=== PATIENT | male | born 1965 | race Caucasian/White ===

== ENCOUNTER 2017-03-14 09:09 | Emergency (ER) | payer MEDICARE, MEDICAID ==
[~2017-03-14] VITALS: Ht 177.8 cm; Wt 92.0 kg
[~2017-03-14 09:09] MED LIST: ASPI-515; ATOR20TA; CALC500T51; COMBIVENT; HUMULIN INSULIN; LEVO100C2; LISI-167; MAGN400C; METH500T97 PO; METO10TA82; MORP100C15; MORP30TA; PANT40GR; SERT50TA; TESTOSTERONE; TIOT18CA INH
[2017-03-14] MEDS ORDERED: FAMOTIDINE 20 MG/2 ML ONE (09:53)
[2017-03-14] MEDS ORDERED: ONDANSETRON 2MG/ML, 2ML ONE ×2 (09:53→11:42)
[2017-03-14] MEDS ORDERED: morphine SULFATE 10 MG/ML, 1ML ONE ×3 (09:53→13:20)
[2017-03-14] MEDS: morphine SULFATE 10 MG/ML, 1ML IVPush PRN ×2 (09:56→11:45)
[2017-03-14 10:01] LABS: HEMOGLOBIN 14.7 g/dL (13.7-18.0); WHITE BLOOD COUNT 12.4 x10^3/uL (3.4-10)
[2017-03-14 10:14] LABS: ASPARTATE AMINO TRANSFERASE 25 U/L (15-37); BLOOD UREA NITROGEN 28 mg/dL (7-18)
[2017-03-14] MEDS ORDERED: SODIUM CHLORIDE 0.9% 1,000ML IVBOLUS ONE ×2 (11:00)
[2017-03-14] MEDS ORDERED: ONDANSETRON 2MG/ML, 2ML IVPush ONE ×2 (11:00→12:00)
[2017-03-14] MEDS ORDERED: FAMOTIDINE 20 MG/2 ML IVP ONE (11:00)
[2017-03-14] MEDS ORDERED: SODIUM CHLORIDE FLUSH 10ML SYR IVF ONE (11:00)
[2017-03-14 11:54] LABS: PATH.CAST-FLAG NOT PRESENT; SPERM-FLAG NOT PRESENT; SRC-FLAG NOT PRESENT; XTAL-FLAG NOT PRESENT; YLC-FLAG NOT PRESENT
[2017-03-14] MEDS ORDERED: MORPHINE SULFATE 4 MG/ML, 1ML IVPush PRN (13:00)
[2017-03-14] MEDS ORDERED: PROMETHAZINE 25 MG/ML, 1ML ONE (13:46)
[2017-03-14] MEDS ORDERED: METOCLOPRAMIDE 5 MG/ML, 2ML ONE (13:59)
[2017-03-14] MEDS ORDERED: METOCLOPRAMIDE 5 MG/ML, 2ML IVPush ONE (14:00)
[2017-03-14 14:45] VITALS: BP 147/67
== END 2017-03-14 14:50 | disposition home or self-care (01) ==
LOC: ED 10:10
DX: E86.0 Dehydration (principal); R11.2 Nausea with vomiting, unspecified; F11.23 Opioid dependence with withdrawal; R10.84 Generalized abdominal pain; J44.9 Chronic obstructive pulmonary disease, unspecified; E03.9 Hypothyroidism, unspecified; I10 Essential (primary) hypertension; E11.9 Type 2 diabetes mellitus without complications; Z88.0 Allergy status to penicillin; Z88.8 Allergy status to other drugs, medicaments and biological substances; F17.210 Nicotine dependence, cigarettes, uncomplicated
CPT/HCPCS: 36415; 74176; 80053; 81001; 82010; 82800; 82962; 83605; 83690; 85025; 96361; 96374; 96375; 96376; 99285; J2270; J2405; J2765; J7030; S0028

== ENCOUNTER 2017-06-04 01:45 | Emergency (ER) | payer MEDICARE, MEDICAID ==
[~2017-06-04] VITALS: Ht 177.8 cm; Wt 92.1 kg
[2017-06-04 01:48] VITALS: BP 153/80
== END 2017-06-04 02:50 | disposition home or self-care (01) ==
LOC: ED 02:21
DX: Z76.0 Encounter for issue of repeat prescription (principal); E11.65 Type 2 diabetes mellitus with hyperglycemia
CPT/HCPCS: 82962; 99283